=== PATIENT | male | born 1980 | race Caucasian/White ===

== ENCOUNTER 2016-08-02 14:43 | Emergency (ER) | payer OTHER, SELFPAY ==
[2016-08-02] MEDS ORDERED: Sodium Chloride 0.9% 1000 ML 1,000 ML IV STA (15:10)
[2016-08-02] MEDS ORDERED: Reglan 10 MG/2 ML IV ONE (15:10)
[2016-08-02] MEDS ORDERED: Zofran 4 MG/2 ML VIAL IV ONE (15:10)
[2016-08-02] MEDS ORDERED: Phenergan 25 MG INJ IM ONE (15:10)
[2016-08-02] MEDS ORDERED: Zofran 4 MG/2 ML VIAL ONE (15:14)
[2016-08-02] MEDS ORDERED: Phenergan 25 MG INJ ONE (15:14)
[2016-08-02] MEDS ORDERED: Sodium Chloride 0.9% 1000 ML 1,000 ML ONE (15:15)
[2016-08-02] MEDS ORDERED: Reglan 10 MG/2 ML ONE (15:15)
--- NOTE | 2016-08-02 15:15 | ERPHSYRPT ---
- History of Present Illness Time Seen by Provider: 08/02/16 15:12 Historian: patient Exam Limitations: no limitations Patient Subjective Stated Complaint: pt reports he ate rally's et has vomited ever since-denies diarrhea-states his bowels usually move everyday but hasn't since -states he does not feel constipated-pt states that he has been running for hours at a time to help the vomiting with no relief-states his legs hurt Triage Nursing Assessment: pt pale warm et dry-bile noted in vomit-pt very anxious upon axsxqfh-hwqgmitv-olrorielzs jittery movements-hyperventilating et yelling-jerking back et off the bed at attempted palp of abd Physician History: pt reports he ate rally[employer] et has vomited ever since-denies diarrhea- states his bowels usually move everyday but hasn't since -states he does not feel constipated-pt states that he has been running for hours at a time to help the vomiting with no relief-states his legs hurt, patient states that he has this type of problem off and on for long time and has been diagnosed with Post traumatic stress disorder Timing/Duration: day(s) (2 days) Quality: cramping Abdominal Pain Onset Location: generalized abdomen Pain Radiation: no radiation Severity of Pain-Max: moderate Severity of Pain-Current: moderate Modifying Factors: Improves With: nothing Associated Symptoms: nausea, vomiting Previous symptoms: same symptoms as today Allergies/Adverse Reactions: No Known Drug Allergies Allergy (Verified 08/02/16 14:54) Home Medications: No Home Meds [address] [facility] UD 08/02/16 [History] Hx Tetanus, Diphtheria Vaccination/Date Given: Yes Hx Influenza Vaccination/Date Given: No Hx Pneumococcal Vaccination/Date Given: No Immunizations Up to Date: Yes - Review of Systems Constitutional: No Fever, No Chills Eyes: No Symptoms Ears, Nose, & Throat: No Symptoms Respiratory: No Cough, No Dyspnea Cardiac: No Chest Pain, No Edema, No Syncope Abdominal/Gastrointestinal: Abdominal Pain, Nausea, Vomiting, No Diarrhea Genitourinary Symptoms: No Dysuria Musculoskeletal: No Back Pain, No Neck Pain Skin: No Rash Neurological: No Dizziness, No Focal Weakness, No Sensory Changes Psychological: No Symptoms Endocrine: No Symptoms All Other Systems: Reviewed and Negative - Past Medical History Pertinent Past Medical History: Yes Neurological History: No Pertinent History ENT History: No Pertinent History Cardiac History: No Pertinent History Respiratory History: No Pertinent History Endocrine Medical History: No Pertinent History Musculoskeletal History: No Pertinent History GI Medical History: GERD, Other History: No Pertinent History Psycho-Social History: Anxiety Male Reproductive Disorders: No Pertinent History - Past Surgical History Past Surgical History: Yes Neuro Surgical History: No Pertinent History Gastrointestinal: Cholecystectomy - Social History Smoking Status: Current every day smoker How long have you smoked: YRS Exposure to second hand smoke: Yes Drug Use: marijuana Patient Lives Alone: No Significant Family History: no pertinent family hx - Nursing Vital Signs Nursing Vital Signs: Initial Vital Signs Temperature 98.3 F Temperature Source Oral Pulse Rate 100 Respiratory Rate 22 Blood Pressure [Right Arm] 146/87 Pain Intensity 10 - Physical Exam General Appearance: no apparent distress, alert Eye Exam: PERRL/EOMI, eyes nml inspection Ears, Nose, Throat Exam: normal ENT inspection, pharynx normal, moist mucous membranes Neck Exam: normal inspection, non-tender, supple, full range of motion Respiratory Exam: normal breath sounds, lungs clear, No respiratory distress Cardiovascular Exam: regular rate/rhythm, normal heart sounds Gastrointestinal/Abdomen Exam: soft, tenderness (generalised), No mass Back Exam: normal inspection, normal range of motion, No CVA tenderness, No vertebral tenderness Extremity Exam: normal inspection, normal range of motion, pelvis stable Neurologic Exam: alert, oriented x 3, cooperative, normal mood/affect, nml cerebellar function, sensation nml, No motor deficits Skin Exam: normal color, warm, dry SpO2: 99 Oxygen Delivery: Room Air - Course Nursing assessment & vital signs reviewed: Yes Ordered Tests: Active Orders 24 hr Category Date Time Status Clean Catch Urine Specimen STAT Care 08/02/16 15:29 Active AMYLASE Stat Lab 08/02/16 15:16 Completed CBC W DIFF Stat Lab 08/02/16 15:16 Completed CMP Stat Lab 08/02/16 15:16 Completed LIPASE Stat Lab 08/02/16 15:16 Completed UA W/ MICROSCOPIC Stat Lab 08/02/16 15:40 Completed Urine Triage Profile Stat Lab 08/02/16 15:40 Completed Medication Summary Generic Name Dose Route Start Last Admin Trade Name Freq PRN Reason Stop Dose Admin Ceftriaxone Sodium/Dextrose 50 mls @ 100 mls/hr 08/02/16 16:24 Rocephin 1 Gm-D5w 50 Ml Bag IV 08/02/16 16:53 STAT ONE Discontinued Medications Generic Name Dose Route Start Last Admin Trade Name Isatu PRN Reason Stop Dose Admin Sodium Chloride 1,000 mls @ 999 mls/hr 08/02/16 15:10 08/02/16 15:19 Sodium Chloride 0.9% 1000 Ml IV 08/02/16 16:10 999 mls/hr .Q1H1M STA Administration Sodium Chloride Confirm 08/02/16 15:15 Sodium Chloride 0.9% 1000 Ml Administered 08/02/16 15:16 Dose 1,000 mls @ ud .ROUTE .STK-MED ONE Ceftriaxone Sodium/Dextrose Confirm 08/02/16 16:29 Rocephin 1 Gm-D5w 50 Ml Bag Administered 08/02/16 16:30 Dose 50 mls @ ud IV .STK-MED ONE Metoclopramide HCl 10 mg 08/02/16 15:10 08/02/16 15:19 Reglan 10 Mg/2 Ml IV 08/02/16 15:11 10 mg STAT ONE Administration Metoclopramide HCl Confirm 08/02/16 15:15 Reglan 10 Mg/2 Ml Administered 08/02/16 15:16 Dose 10 mg .ROUTE .STK-MED ONE Ondansetron HCl 4 mg 08/02/16 15:10 08/02/16 15:19 Zofran 4 Mg/2 Ml Vial IV 08/02/16 15:11 4 mg STAT ONE Administration Ondansetron HCl Confirm 08/02/16 15:14 Zofran 4 Mg/2 Ml Vial Administered 08/02/16 15:15 Dose 4 mg .ROUTE .STK-MED ONE Promethazine HCl 25 mg 08/02/16 15:10 08/02/16 15:19 Phenergan 25 Mg Inj IM 08/02/16 15:11 25 mg STAT ONE Administration Promethazine HCl Confirm 08/02/16 15:14 Phenergan 25 Mg Inj Administered 08/02/16 15:15 Dose 25 mg .ROUTE .STK-MED ONE Lab/Rad Data: Laboratory Result Diagrams 08/02/16 15:16 08/02/16 15:16 Laboratory Results 08/02/16 08/02/16 08/02/16 Range/Units 15:40 15:40 15:16 WBC (4.0-10.5) K/mm3 RBC (4.1-5.6) M/mm3 Hgb (12.5-18.0) gm/dl Hct (42-50) % MCV (78-100) fl MCH (26-32) pg MCHC (32-36) g/dl RDW (11.5-14.0) % Plt Count (150-450) K/mm3 MPV (6-9.5) fl Gran % (36.0-66.0) % Lymphocytes % (24.0-44.0) % Monocytes % (0.0-12.0) % Eosinophils % (0.00-5.0) % Basophils % (0.0-0.4) % Basophils # (0-0.4) Sodium 135 L (136-145) mEq/L Potassium 4.5 (3.5-5.1) mEq/L Chloride 97 L (98-107) mEq/L Carbon Dioxide 20.2 L (21-32) mEq/L Anion Gap 22.1 H (5-15) MEQ/L BUN 37 H (9-20) mg/dL Creatinine 1.79 H (0.55-1.30) mg/dl Estimated GFR 46 ML/MIN Glucose 119 H (70-110) MG/DL Calcium 9.8 (8.5-10.1) mg/dL Total Bilirubin 0.6 (0.2-1.0) mg/dL AST 135 H (15-37) U/L ALT 60 (12-78) U/L Alkaline Phosphatase 95 (46-116) U/L Serum Total Protein 7.9 (6.4-8.2) gm/dL Albumin 4.4 (3.4-5.0) g/dL Amylase 36 (25-115) U/L Lipase 96 (73-393) U/L Ur Collection Type CCMS Urine Color YELLOW (YELLOW) Urine Appearance CLEAR (CLEAR) Urine pH 5.5 (5-6) Ur Specific [place] 1.015 (1.005-1.025) Urine Protein 100 (Negative) Urine Glucose (UA) NEGATIVE (NEGATIVE) mg/dL Urine Ketones SMALL-15 (NEGATIVE) Urine Nitrite NEGATIVE (NEGATIVE) Urine Bilirubin NEGATIVE (NEGATIVE) Urine Urobilinogen 0.2 (0-1) mg/dL Urine WBC (Auto) NEGATIVE (NEGATIVE) Urine RBC (Auto) LARGE (0-5) Tru/ul Urine Microscopic RBC 2-5 (0-2) /HPF Urine Microscopic WBC 2-5 (0-5) /HPF Ur Epithelial Cells FEW (FEW) /HPF Urine Bacteria FEW (NEGATIVE) /HPF Granular Casts 0-2 (NEGATIVE) /LPF Urine Opiates Level NEG. (NEGATIVE) Ur Methadone NEG. (NEGATIVE) Urine Barbiturates NEG. (NEGATIVE) Ur Phencyclidine (PCP) NEG. (NEGATIVE) Urine Amphetamine NEG. (NEGATIVE) U Benzodiazepine Level NEG. (NEGATIVE) Urine Cocaine NEG. (NEGATIVE) Urine Marijuana (THC) POS. (NEGATIVE) Specimen Received 08/02 154408/02/16 Range/Units 15:16 WBC 15.3 H (4.0-10.5) K/mm3 RBC 4.94 (4.1-5.6) M/mm3 Hgb 14.7 (12.5-18.0) gm/dl Hct 42.6 (42-50) % MCV 86.2 (78-100) fl MCH 29.8 (26-32) pg MCHC 34.5 (32-36) g/dl RDW 13.9 (11.5-14.0) % Plt Count 303 (150-450) K/mm3 MPV 9.4 (6-9.5) fl Gran % 81.9 H (36.0-66.0) % Lymphocytes % 8.6 L (24.0-44.0) % Monocytes % 9.3 (0.0-12.0) % Eosinophils % 0.0 (0.00-5.0) % Basophils % 0.2 (0.0-0.4) % Basophils # 0.03 (0-0.4) Sodium (136-145) mEq/L Potassium (3.5-5.1) mEq/L Chloride (98-107) mEq/L Carbon Dioxide (21-32) mEq/L Anion Gap (5-15) MEQ/L BUN (9-20) mg/dL Creatinine (0.55-1.30) mg/dl Estimated GFR ML/MIN Glucose (70-110) MG/DL Calcium (8.5-10.1) mg/dL Total Bilirubin (0.2-1.0) mg/dL AST (15-37) U/L ALT (12-78) U/L Alkaline Phosphatase (46-116) U/L Serum Total Protein (6.4-8.2) gm/dL Albumin (3.4-5.0) g/dL Amylase (25-115) U/L Lipase (73-393) U/L Ur Collection Type Urine Color (YELLOW) Urine Appearance (CLEAR) Urine pH (5-6) Ur Specific [place] (1.005-1.025) Urine Protein (Negative) Urine Glucose (UA) (NEGATIVE) mg/dL Urine Ketones (NEGATIVE) Urine Nitrite (NEGATIVE) Urine Bilirubin (NEGATIVE) Urine Urobilinogen (0-1) mg/dL Urine WBC (Auto) (NEGATIVE) Urine RBC (Auto) (0-5) Tru/ul Urine Microscopic RBC (0-2) /HPF Urine Microscopic WBC (0-5) /HPF Ur Epithelial Cells (FEW) /HPF Urine Bacteria (NEGATIVE) /HPF Granular Casts (NEGATIVE) /LPF Urine Opiates Level (NEGATIVE) Ur Methadone (NEGATIVE) Urine Barbiturates (NEGATIVE) Ur Phencyclidine (PCP) (NEGATIVE) Urine Amphetamine (NEGATIVE) U Benzodiazepine Level (NEGATIVE) Urine Cocaine (NEGATIVE) Urine Marijuana (THC) (NEGATIVE) Specimen Received - Progress Progress: improved, pain not gone completely Progress Note: 08/02/16 16:32 Patient is given IV fluids, IV Phenergan, IV metoclopramide and IV Rocephin. Patient urine tox screen showed marijuana. Patient was specifically asking for Dilaudid IV, which patient is told that it is not recommended for this type of pain and nausea. So, he asks to discharge him if he is not going to get Dilaudid. Counseled pt/family regarding: lab results, diagnosis, need for follow-up - Departure Time of Disposition: 16:37 Departure Disposition: Home Clinical Impression: Enteritis due to Escherichia coli Vomiting Qualifiers: Vomiting type: unspecified Vomiting Intractability: unspecified Nausea presence : with nausea Qualified Code(s): R11.2 - Nausea with vomiting, unspecified Abdominal pain Qualifiers: Abdominal location: generalized Qualified Code(s): R10.84 - Generalized abdominal pain Condition: Stable Critical Care Time: Yes Critical Care Time(excluding separately billable procedures): 30-74 minutes Referrals: JESUS LARA [Primary Care Provider] - Instructions: Abdominal Pain-Adult, Nausea -- Adult, Vomiting -- Adult Additional Instructions: ABDOMINAL PAIN 1. There are several different causes for abdominal pain, some of which may not be able to be identified on initial examination. 2. The important thing to remember is that bodily functions can change in a short period of time. If you notice any of the following symptoms, return to the emergency department or consult your doctor immediately: A. Worsening pain or no improvement in the next 12 hours. B. Increasing, severe abdominal pain C. Blood in stool D. Black stools E. Persistent vomiting F. Fever or chills or other symptoms Please follow the instructions given to you. Please take your medication as prescribed if given. If symptoms recur or get worse, come back to the emergency room if you cannot reach your primary care physician, or call your primary care physician for an appointment. Again if your symptoms get worse, come back to the emergency room. Thanks for visiting emergency room, and let us take care of you. Prescriptions: Ciprofloxacin HCl 500 mg [Cipro 500 MG] 500 mg PO BIDAC #20 tablet Promethazine HCl 25 mg [Phenergan 25 mg] 25 mg PO QID #20 tablet
[2016-08-02 15:20] LABS: BASOPHIL % 0.2 % (0.0-0.4); Granulocytes % 81.9 % (36.0-66.0); Lymphocytes % 8.6 % (24.0-44.0); Mean Cell Volume 86.2 fl (78-100); Mean Corpuscular Hemoglobin 29.8 pg (26-32); Mean Platelet Volume 9.4 fl (6-9.5); Monocytes % 9.3 % (0.0-12.0); Platelet Count 303 K/mm3 (150-450); Red Blood Count 4.94 M/mm3 (4.1-5.6); Red Cell Distribution Width 13.9 % (11.5-14.0); White Blood Count 15.3 K/mm3 (4.0-10.5)
[2016-08-02 15:39] LABS: ALBUMIN 4.4 g/dL (3.4-5.0); ANION GAP 22.1 MEQ/L (5-15); BILIRUBIN,TOTAL 0.6 mg/dL (0.2-1.0); Carbon Dioxide 20.2 mEq/L (21-32); Potassium 4.5 mEq/L (3.5-5.1); Total Protein 7.9 gm/dL (6.4-8.2)
[2016-08-02 15:56] LABS: Bacteria FEW /HPF (NEGATIVE); COMPLETE URINE MICROSCOPIC? YES; Collection Type CCMS; Epithelial Cells FEW /HPF (FEW); GRANULAR CASTS 0-2 /LPF (NEGATIVE); Ph 5.5 (5-6)
[2016-08-02] MEDS ORDERED: ROCEPHIN 1 Gm-D5w 50 ml Bag** 50 ML IV ONE ×2 (16:24→16:29)
[2016-08-02 16:37] VITALS: O2SAT 99
[2016-08-02 16:38] VITALS: BP 155/74; PULSE 108
== END 2016-08-02 17:09 | disposition home or self-care (01) ==
LOC: ED 14:43
DX: A04.4 Other intestinal Escherichia coli infections (principal); R11.2 Nausea with vomiting, unspecified; R10.84 Generalized abdominal pain
CPT/HCPCS: 36415; 80053; 80307; 81000; 82150; 83690; 85025; 96360; 96361; 96372; 96374; 96375; 99285; J0696; J2405; J2550

== ENCOUNTER 2017-09-06 17:01 | Emergency (ER) | payer OTHER ==
[2017-09-06] MEDS ORDERED: Sodium Chloride 0.9% 1000 ML 1,000 ML IV STA (17:29)
--- NOTE | 2017-09-06 17:35 | ERPHSYRPT ---
- History of Present Illness Time Seen by Provider: 09/06/17 17:21 Source: patient Exam Limitations: no limitations Patient Subjective Stated Complaint: Pt states "I have been losing weight for three weeks and I do not know why. I have had stomach issues my whole life but this morning my stool was black." Triage Nursing Assessment: Pt alert and oriented X 3, skin pwd. PT ambulates with an upright steady gait, able to speak in clear full sentences. Pt in no apparent respiratory distress. Physician History: 37-year-old white male with history of osteoarthritis, GERD, anxiety, PTSD. Patient arrives with complaint of 3 weeks of losing weight.He states he's had black stools for 2 days. He does state that he has been taking Pepto-Bismol recently.patient states he has been feeling weak. Past medical history includes a arthritis, GERD, anxiety, PTSD. Past surgical history includes cholecystectomy. Social history includes tobacco use. Patient admits to marijuana use denies alcohol use. Timing/Duration: week(s) (3 weeks losing weight black stools for 2 days) Severity: moderate Modifying Factors: Improves With: nothing Associated Symptoms: weakness, other (black stools for 2 days), No nausea, No vomiting, No abdominal pain, No shortness of breath, No heartburn, No diaphoresis, No cough, No chills, No chest pain, No fever, No headaches, No loss of appetite, No malaise, No rash, No syncope, No seizure Allergies/Adverse Reactions: No Known Drug Allergies Allergy (Verified 08/02/16 14:54) Home Medications: Tizanidine HCl 4 mg PO DAILY 09/06/17 [History] Tramadol HCl 50 mg [Ultram 50 mg] 50 mg PO DAILY 09/06/17 [History] Hx Tetanus, Diphtheria Vaccination/Date Given: Yes Hx Influenza Vaccination/Date Given: No Hx Pneumococcal Vaccination/Date Given: No Immunizations Up to Date: Yes - Review of Systems Constitutional: Weakness, Weight Loss, No Fever, No Chills Eyes: No Symptoms Ears, Nose, & Throat: No Symptoms Respiratory: No Cough, No Dyspnea Cardiac: No Symptoms, No Chest Pain, No Edema, No Syncope Abdominal/Gastrointestinal: Melena, No Abdominal Pain, No Nausea, No Vomiting, No Diarrhea, No Constipation, No Hematemesis, No Hematochezia, No Dysphagia, No Appetite Changes Genitourinary Symptoms: No Dysuria Musculoskeletal: No Back Pain, No Neck Pain Skin: No Rash Neurological: No Dizziness, No Focal Weakness, No Sensory Changes Psychological: No Symptoms Endocrine: No Symptoms All Other Systems: Reviewed and Negative - Past Medical History Pertinent Past Medical History: Yes Neurological History: No Pertinent History ENT History: No Pertinent History Cardiac History: Other Respiratory History: No Pertinent History Endocrine Medical History: No Pertinent History Musculoskeletal History: Osteoarthritis GI Medical History: GERD, Other History: No Pertinent History Psycho-Social History: Anxiety Male Reproductive Disorders: No Pertinent History Other Medical History: SOB at times, - Past Surgical History Past Surgical History: Yes Neuro Surgical History: No Pertinent History Gastrointestinal: Cholecystectomy - Social History Smoking Status: Current every day smoker How long have you smoked: 23 Exposure to second hand smoke: Yes Drug Use: marijuana Patient Lives Alone: No Significant Family History: no pertinent family hx - Nursing Vital Signs Nursing Vital Signs: Initial Vital Signs Temperature 99.1 F 09/06/17 17:14 Pulse Rate 84 09/06/17 17:14 Respiratory Rate 16 09/06/17 17:14 Blood Pressure 148/89 09/06/17 17:14 O2 Sat by Pulse Oximetry 99 09/06/17 17:14 Pain Scale Pain Intensity 0 - Physical Exam General Appearance: no apparent distress, alert Eye Exam: PERRL/EOMI, eyes nml inspection Ears, Nose, Throat Exam: normal ENT inspection, TMs normal, pharynx normal, moist mucous membranes Neck Exam: normal inspection, non-tender, supple, full range of motion Respiratory Exam: normal breath sounds, lungs clear, No respiratory distress Cardiovascular Exam: regular rate/rhythm, normal heart sounds, normal peripheral pulses Gastrointestinal/Abdomen Exam: soft, normal bowel sounds, No tenderness, No mass Rectal Exam: normal rectal tone, No blood Back Exam: normal inspection, normal range of motion, No CVA tenderness, No vertebral tenderness Extremity Exam: normal inspection, normal range of motion, pelvis stable Neurologic Exam: alert, oriented x 3, cooperative, normal mood/affect, nml cerebellar function, nml station & gait, sensation nml, No motor deficits Skin Exam: normal color, warm, dry, No rash SpO2 Interpretation: normal (99%) SpO2: 99 Oxygen Delivery: Room Air Ordered Tests: Active Orders 24 hr Category Date Time Status IV Insertion STAT Care 09/06/17 17:29 Active CBC W DIFF Stat Lab 09/06/17 17:51 Completed CMP Stat Lab 09/06/17 17:51 Completed Occult Blood,Stool Other Stat Lab 09/06/17 17:54 Completed T4 (Thyroxine) Stat Lab 09/06/17 17:51 Received TSH [TSH, 3RD Generation] Stat Lab 09/06/17 17:51 Received Medication Summary Discontinued Medications Generic Name Dose Route Start Last Admin Trade Name Isatu PRN Reason Stop Dose Admin Sodium Chloride 1,000 mls @ 999 mls/hr 09/06/17 17:29 09/06/17 17:51 Sodium Chloride 0.9% 1000 Ml IV 09/06/17 18:29 999 mls/hr .Q1H1M STA Administration Sodium Chloride Confirm 09/06/17 17:43 Sodium Chloride 0.9% 1000 Ml Administered 09/06/17 17:44 Dose 1,000 mls @ ud .ROUTE .STK-MED ONE Lab/Rad Data: Laboratory Result Diagrams 09/06/17 17:51 09/06/17 17:51 Laboratory Results 09/06/17 09/06/17 09/06/17 Range/Units 17:54 17:51 17:51 WBC 8.0 (4.0-10.5) K/mm3 RBC 4.63 (4.1-5.6) M/mm3 Hgb 14.1 (12.5-18.0) gm/dl Hct 41.4 L (42-50) % MCV 89.4 (78-100) fl MCH 30.5 (26-32) pg MCHC 34.1 (32-36) g/dl RDW 13.8 (11.5-14.0) % Plt Count 280 (150-450) K/mm3 MPV 9.2 (6-9.5) fl Gran % 60.2 (36.0-66.0) % Eos # (Auto) 0.57 H (0-0.5) Absolute Lymphs (auto) 1.42 (1.0-4.6) Absolute Monos (auto) 1.16 (0.0-1.3) Lymphocytes % 17.7 L (24.0-44.0) % Monocytes % 14.4 H (0.0-12.0) % Eosinophils % 7.1 H (0.00-5.0) % Basophils % 0.6 (0.0-0.4) % Absolute Granulocytes 4.83 (1.4-6.9) Basophils # 0.05 (0-0.4) Sodium 139 (137-145) mmol/L Potassium 4.2 (3.5-5.1) mmol/L Chloride 104 (98-107) mmol/L Carbon Dioxide 26 (22-30) mmol/L Anion Gap 13.3 (5-15) MEQ/L BUN 25 H (9-20) mg/dL Creatinine 1.00 (0.66-1.25) mg/dL Estimated GFR > 60.0 ML/MIN Glucose 107 H (74-106) mg/dL Calcium 9.7 (8.4-10.2) mg/dL Total Bilirubin 0.50 (0.2-1.3) mg/dL AST 97 H (17-59) U/L ALT 38 (0-50) U/L Alkaline Phosphatase 84 (38-126) U/L Serum Total Protein 7.1 (6.3-8.2) g/dL Albumin 4.4 (3.5-5.0) g/dL Stool Occult Blood NEGATIVE (Negative) - Progress Progress: improved Progress Note: 09/06/17 18:26 37-year-old white male arrives with complaint of weight loss close to 20 pounds in 3 weeks. He also states that he had black stools this morning and yesterday. Patient has been taking Pepto-Bismol. Patient denies vomiting no diarrhea. On physical examination patient nontender abdomen positive bowel sounds. Patient's occult blood is negative. TSH T4 is pending. CBC shows a normal hemoglobin and hematocrit. Chemistry essentially normal with the exception of a BUN of 25. Patient has been given 1 L of normal saline. Will discharge patient. Patient to follow-up with his family doctor. 09/06/17 18:32 Patient's orthostatic vital signs are within normal limits. - Departure Time of Disposition: 18:29 Departure Disposition: Home Clinical Impression: Weight loss Condition: Fair Critical Care Time: No Referrals: JESUS LARA [Primary Care Provider] - Additional Instructions: Return home. Plenty of fluids. Follow-up with your family doctor call tomorrow morning and schedule an appointment. Return for acute distress or for severe symptoms
[2017-09-06] MEDS ORDERED: Sodium Chloride 0.9% 1000 ML 1,000 ML ONE (17:43)
[2017-09-06 17:55] LABS: BASOPHIL % 0.6 % (0.0-0.4); Basophil (Absolute #) 0.05 (0-0.4); Eosinophil % 7.1 % (0.00-5.0); Eosinophil (Absolute #) 0.57 (0-0.5); Granulocyte Absolute (ANC) 4.83 (1.4-6.9); Granulocytes % 60.2 % (36.0-66.0); Hematocrit 41.4 % (42-50); Hemoglobin 14.1 gm/dl (12.5-18.0); Lymphocyte (Absolute #) 1.42 (1.0-4.6); Lymphocytes % 17.7 % (24.0-44.0); Mean Cell Volume 89.4 fl (78-100); Mean Corpuscular Hemoglobin 30.5 pg (26-32); Mean Corpuscular Hgb Concent. 34.1 g/dl (32-36); Mean Platelet Volume 9.2 fl (6-9.5); Monocyte (Absolute #) 1.16 (0.0-1.3); Monocytes % 14.4 % (0.0-12.0); Platelet Count 280 K/mm3 (150-450); Red Blood Count 4.63 M/mm3 (4.1-5.6); Red Cell Distribution Width 13.8 % (11.5-14.0)
[2017-09-06 18:22] LABS: ALBUMIN 4.4 g/dL (3.5-5.0); ALKALINE PHOSPHATASE 84 U/L (38-126); ANION GAP 13.3 MEQ/L (5-15); BLOOD UREA NITROGEN 25 mg/dL (9-20); CHLORIDE 104 mmol/L (98-107); Calcium 9.7 mg/dL (8.4-10.2); Carbon Dioxide 26 mmol/L (22-30); Glucose 107 mg/dL (74-106); Potassium 4.2 mmol/L (3.5-5.1); SGOT/AST 97 U/L (17-59); SGPT/ALT 38 U/L (0-50); SODIUM 139 mmol/L (137-145); Total Protein 7.1 g/dL (6.3-8.2)
[2017-09-06 19:02] VITALS: BP 114/63; PULSE 96; O2SAT 100
[2017-09-06 19:04] LABS: TSH, 3RD Generation 0.561 mIU/L (0.47-4.68)
== END 2017-09-06 19:02 | disposition home or self-care (01) ==
LOC: ED 17:01
DX: R63.4 Abnormal weight loss (principal); Z79.899 Other long term (current) drug therapy
CPT/HCPCS: 36000; 36415; 80053; 82272; 84436; 84443; 85025; 96360; 99284

== ENCOUNTER 2021-08-05 20:39 | Emergency (ER) | payer BC, OTHER ==
[2021-08-05] MEDS ORDERED: ANTIVERT 25 MG PO ONE (20:59)
[2021-08-05 21:06] VITALS: O2SAT 97
[2021-08-05] MEDS ORDERED: ANTIVERT 25 MG ONE (21:15)
[2021-08-05 21:28] LABS: Epithelial Cells RARE /HPF (FEW); Mucus SLIGHT /HPF (NEGATIVE)
[2021-08-05 21:28] LABS: Absolute Neutrophil Ct (ANC) 4.47 (1.4-6.9); Basophil (Absolute #) 0.07 (0-0.4); Eosinophil % 4.7 % (0.00-5.0); Eosinophil (Absolute #) 0.38 (0-0.5); Hematocrit 42.4 % (42-50); Hemoglobin 13.9 gm/dl (12.5-18.0); Lymphocyte (Absolute #) 2.45 (1.0-4.6); Lymphocytes % 30.2 % (24.0-44.0); Mean Cell Volume 91.2 fl (78-100); Mean Corpuscular Hemoglobin 29.9 pg (26-32); Mean Corpuscular Hgb Concent. 32.8 g/dl (32-36); Mean Platelet Volume 9.3 fl (7.5-11.0); Monocyte (Absolute #) 0.74 (0.0-1.3); Monocytes % 9.1 % (0.0-12.0); Neutrophil % 55.1 % (36.0-66.0); Platelet Count 315 K/mm3 (150-450); Red Blood Count 4.65 M/mm3 (4.1-5.6); Red Cell Distribution Width 14.4 % (11.5-14.0); White Blood Count 8.1 K/mm3 (4.0-10.5)
[2021-08-05 21:29] LABS: Appearance CLEAR (CLEAR); Bilirubin NEGATIVE (NEGATIVE); Glucose NEGATIVE (NEGATIVE); Ketones NEGATIVE (NEGATIVE); Nitrite NEGATIVE (NEGATIVE); Protein,Urine Dip NEGATIVE (Negative); RBC NEGATIVE Ery/ul (0-5); Specific Gravity >=1.030 (1.005-1.025); Urine Cultured Indicated? NO; Urobilinogen 0.2 mg/dL (0-1)
--- NOTE | 2021-08-05 21:34 | ERPHSYRPT ---
- History of Present Illness Time Seen by Provider: 08/05/21 20:50 Source: patient Exam Limitations: no limitations Patient Subjective Stated Complaint: pt states he has had intermittent dizziness since thursday. states yesterday he felt better but tonight became dizzy after laying down while on his break at work. felt better after sitting for several minutes and went back to work and had dizziness again after going back to work. Triage Nursing Assessment: pt alert and oriented, answers questions approp. pt ambulatory with steady gait noted. respirations nonlabored. skin warm and dry, pupils equal and reactive. bilat upper and lower ext strength equal and wnl. heart rate 75 on monitor, sinus rhythm Physician History: Patient has been having episodes of dizziness and vertigo since Thursday. He was extremely bad on Thursday with any movement he would get very vertiginous and somewhat nauseated Thursday he felt better at work today at lunchtime he went out had his lunch and then laid down on a bench when he got up the vertigo returned he has had no upper respiratory infections he has noted loud tinnitus and has had some chills. Timing/Duration: day(s) (3), intermittent Severity: moderate Modifying Factors: Improves With: movement Associated Symptoms: nausea, chills Allergies/Adverse Reactions: No Known Drug Allergies Allergy (Verified 08/05/21 21:06) Home Medications: Alprazolam [Xanax] 0.5 mg PO TID 08/05/21 [History] Doxepin HCl 50 mg PO HS 08/05/21 [History] Hx Tetanus, Diphtheria Vaccination/Date Given: Yes Hx Influenza Vaccination/Date Given: No Hx Pneumococcal Vaccination/Date Given: No Immunizations Up to Date: Yes Travel Risk - International Travel Have you traveled outside of the country in past 3 weeks: No - Coronavirus Screening Are you exhibiting any of the following symptoms?: No Close contact with a COVID-19 positive Pt in past 14-21 Days: No - Vaccine Status Have you recieved a Covid-19 vaccination: No - Review of Systems Constitutional: Chills, No Fever Eyes: No Symptoms Ears, Nose, & Throat: No Symptoms, Tinnitus Respiratory: No Cough, No Dyspnea Cardiac: No Chest Pain, No Edema, No Syncope Abdominal/Gastrointestinal: No Abdominal Pain, No Nausea, No Vomiting, No Diarrhea Genitourinary Symptoms: No Dysuria Musculoskeletal: No Back Pain, No Neck Pain Skin: No Rash Neurological: No Dizziness, No Focal Weakness, No Sensory Changes Psychological: No Symptoms Endocrine: No Symptoms All Other Systems: Reviewed and Negative - Past Medical History Pertinent Past Medical History: Yes Neurological History: Other ENT History: No Pertinent History Cardiac History: No Pertinent History Respiratory History: No Pertinent History Endocrine Medical History: No Pertinent History Musculoskeletal History: Degenerative Disk Disease GI Medical History: GERD, Other History: No Pertinent History Psycho-Social History: Anxiety Male Reproductive Disorders: No Pertinent History Other Medical History: SX HX - CHOLECYSTECTOMY - Past Surgical History Past Surgical History: Yes Neuro Surgical History: No Pertinent History Gastrointestinal: Cholecystectomy - Social History Smoking Status: Current every day smoker How long have you smoked: 27 yrs Exposure to second hand smoke: Yes Drug Use: marijuana Patient Lives Alone: No Significant Family History: no pertinent family hx - Nursing Vital Signs Nursing Vital Signs: Initial Vital Signs Pulse Rate 77 08/05/21 20:44 Respiratory Rate 16 08/05/21 20:44 Blood Pressure 140/86 08/05/21 20:44 O2 Sat by Pulse Oximetry 97 08/05/21 20:44 Pain Scale Pain Intensity 0 - Physical Exam General Appearance: mild distress, alert Eye Exam: PERRL/EOMI, eyes nml inspection Ears, Nose, Throat Exam: normal ENT inspection, TMs normal, pharynx normal, moist mucous membranes Neck Exam: normal inspection, non-tender, supple, full range of motion Respiratory Exam: normal breath sounds, lungs clear, No respiratory distress Cardiovascular Exam: regular rate/rhythm, normal heart sounds, normal peripheral pulses Gastrointestinal/Abdomen Exam: soft, normal bowel sounds, No tenderness, No mass Back Exam: normal inspection, normal range of motion, No CVA tenderness, No vertebral tenderness Extremity Exam: normal inspection, normal range of motion, pelvis stable Neurologic Exam: alert, oriented x 3, cooperative, normal mood/affect, nml cerebellar function, nml station & gait, sensation nml, No motor deficits, No abnormal cerebellar tests Skin Exam: normal color, warm, dry, No rash Lymphatic Exam: No adenopathy SpO2: 97 - Course Nursing assessment & vital signs reviewed: Yes EKG Interpreted by Me: RATE (74), NORMAL AXIS, NORMAL INTERVALS, NORMAL QRS, NORMAL ST-T - CT Exams Head CT Interpretation: Tele-radiologist Report Ordered Tests: Active Orders 24 hr Category Date Time Status EKG-ER Only STAT Care 08/05/21 21:01 Active IV Insertion STAT Care 08/05/21 21:06 Active Orthostatic Vital Signs STAT Care 08/05/21 21:08 Active HEAD WITHOUT CONTRAST [CT] Stat Exams 08/05/21 21:00 Taken AMYLASE Stat Lab 08/05/21 21:20 Completed CBC W DIFF Stat Lab 08/05/21 21:20 Completed CMP Stat Lab 08/05/21 21:20 Completed LIPASE Stat Lab 08/05/21 21:20 Completed Lactic Acid Stat Lab 08/05/21 21:29 Completed TROPONIN Q3H Lab 08/05/21 21:20 Completed TROPONIN Q3H Lab 08/06/21 00:15 Ordered TROPONIN Q3H Lab 08/06/21 03:15 Ordered TROPONIN Q3H Lab 08/06/21 06:15 Ordered TROPONIN Q3H Lab 08/06/21 09:15 Ordered UA W/RFX CULTURE Stat Lab 08/05/21 21:06 Completed Medication Summary Discontinued Medications Generic Name Dose Route Start Last Admin Trade Name Isatu PRN Reason Stop Dose Admin Meclizine HCl 25 mg 08/05/21 20:59 08/05/21 21:16 Meclizine Hcl 25 Mg Tablet PO 08/05/21 21:00 25 mg STAT ONE Administration Meclizine HCl Confirm 08/05/21 21:15 Meclizine Hcl 25 Mg Tablet Administered 08/05/21 21:16 Dose 25 mg .ROUTE .ST[place]-MED ONE Lab/Rad Data: Laboratory Result Diagrams 08/05/21 21:20 08/05/21 21:20 Laboratory Results 08/05/21 08/05/21 08/05/21 Range/Units 21:29 21:20 21:20 WBC (4.0-10.5) K/mm3 RBC (4.1-5.6) M/mm3 Hgb (12.5-18.0) gm/dl Hct (42-50) % MCV (78-100) fl MCH (26-32) pg MCHC (32-36) g/dl RDW (11.5-14.0) % Plt Count (150-450) K/mm3 MPV (7.5-11.0) fl Gran % (36.0-66.0) % Eos # (Auto) (0-0.5) Absolute Lymphs (auto) (1.0-4.6) Absolute Monos (auto) (0.0-1.3) Lymphocytes % (24.0-44.0) % Monocytes % (0.0-12.0) % Eosinophils % (0.00-5.0) % Basophils % (0.0-0.4) % Absolute Granulocytes (1.4-6.9) Basophils # (0-0.4) Sodium 138 (137-145) mmol/L Potassium 4.6 (3.5-5.1) mmol/L Chloride 107 (98-107) mmol/L Carbon Dioxide 22 (22-30) mmol/L Anion Gap 13.0 (5-15) MEQ/L BUN 20 (9-20) mg/dL Creatinine 0.96 (0.66-1.25) mg/dL Estimated GFR > 60.0 ML/MIN Glucose 98 (74-106) mg/dL Lactic Acid 1.2 (0.4-2.0) Calcium 9.4 (8.4-10.2) mg/dL Total Bilirubin 0.40 (0.2-1.3) mg/dL AST 26 (17-59) U/L ALT 17 (0-50) U/L Alkaline Phosphatase 77 (38-126) U/L Troponin I < 0.012 (0.000-0.034) ng/mL Serum Total Protein 6.9 (6.3-8.2) g/dL Albumin 4.2 (3.5-5.0) g/dL Amylase 99 (30-110) U/L Lipase 383 H (23-300) U/L Urinalys Dipstick Clnc Urine Color (YELLOW) Urine Appearance (CLEAR) Urine pH (5-6) Ur Specific [place] (1.005-1.025) POC Urine Protein Conf (Negative) Urine Ketones (NEGATIVE) Urine Nitrite (NEGATIVE) Urine Bilirubin (NEGATIVE) Urine Urobilinogen (0-1) mg/dL Urine Leukocytes (NEGATIVE) Urine WBC (Auto) (0-5) /HPF U Epithel Cells (Auto) (FEW) /HPF Urine Bacteria (Auto) (NEGATIVE) /HPF Urine RBC (0-5) Tru/ul Urine Mucus (Auto) (NEGATIVE) /HPF Ur Culture Indicated? Urine Glucose (NEGATIVE) mg/dL 08/05/21 08/05/21 Range/Units 21:20 21:06 WBC 8.1 (4.0-10.5) K/mm3 RBC 4.65 (4.1-5.6) M/mm3 Hgb 13.9 (12.5-18.0) gm/dl Hct 42.4 (42-50) % MCV 91.2 (78-100) fl MCH 29.9 (26-32) pg MCHC 32.8 (32-36) g/dl RDW 14.4 H (11.5-14.0) % Plt Count 315 (150-450) K/mm3 MPV 9.3 (7.5-11.0) fl Gran % 55.1 (36.0-66.0) % Eos # (Auto) 0.38 (0-0.5) Absolute Lymphs (auto) 2.45 (1.0-4.6) Absolute Monos (auto) 0.74 (0.0-1.3) Lymphocytes % 30.2 (24.0-44.0) % Monocytes % 9.1 (0.0-12.0) % Eosinophils % 4.7 (0.00-5.0) % Basophils % 0.9 (0.0-0.4) % Absolute Granulocytes 4.47 (1.4-6.9) Basophils # 0.07 (0-0.4) Sodium (137-145) mmol/L Potassium (3.5-5.1) mmol/L Chloride (98-107) mmol/L Carbon Dioxide (22-30) mmol/L Anion Gap (5-15) MEQ/L BUN (9-20) mg/dL Creatinine (0.66-1.25) mg/dL Estimated GFR ML/MIN Glucose (74-106) mg/dL Lactic Acid (0.4-2.0) Calcium (8.4-10.2) mg/dL Total Bilirubin (0.2-1.3) mg/dL AST (17-59) U/L ALT (0-50) U/L Alkaline Phosphatase (38-126) U/L Troponin I (0.000-0.034) ng/mL Serum Total Protein (6.3-8.2) g/dL Albumin (3.5-5.0) g/dL Amylase (30-110) U/L Lipase (23-300) U/L Urinalys Dipstick Clnc MAIN LAB Urine Color YELLOW (YELLOW) Urine Appearance CLEAR (CLEAR) Urine pH 6.0 (5-6) Ur Specific [place] >=1.030 (1.005-1.025) POC Urine Protein Conf NEGATIVE (Negative) Urine Ketones NEGATIVE (NEGATIVE) Urine Nitrite NEGATIVE (NEGATIVE) Urine Bilirubin NEGATIVE (NEGATIVE) Urine Urobilinogen 0.2 (0-1) mg/dL Urine Leukocytes NEGATIVE (NEGATIVE) Urine WBC (Auto) NONE (0-5) /HPF U Epithel Cells (Auto) RARE (FEW) /HPF Urine Bacteria (Auto) NONE (NEGATIVE) /HPF Urine RBC NEGATIVE (0-5) Tru/ul Urine Mucus (Auto) SLIGHT (NEGATIVE) /HPF Ur Culture Indicated? NO Urine Glucose NEGATIVE (NEGATIVE) mg/dL - Progress Progress: improved - Departure Departure Disposition: Home Clinical Impression: Labyrinthitis Condition: Stable Critical Care Time: No Referrals: JESUS LARA NP [Primary Care Provider] - Follow up/PCP as directed Instructions: Vertigo (a Type of Dizziness) (DC) Prescriptions: Meclizine HCl 25 mg [Antivert 25 mg] 25 mg PO TID 5 Days #15 tablet
[2021-08-05 21:38] LABS: ALBUMIN 4.2 g/dL (3.5-5.0); ALKALINE PHOSPHATASE 77 U/L (38-126); AMYLASE 99 U/L (30-110); BLOOD UREA NITROGEN 20 mg/dL (9-20); CHLORIDE 107 mmol/L (98-107); Calcium 9.4 mg/dL (8.4-10.2); Carbon Dioxide 22 mmol/L (22-30); Creatinine 1 0.96 mg/dL (0.66-1.25); EST GLOMERULAR FILTRATION RATE > 60.0 ML/MIN; Glucose 98 mg/dL (74-106); LIPASE 383 U/L (23-300); Potassium 4.6 mmol/L (3.5-5.1); SGOT/AST 26 U/L (17-59); SGPT/ALT 17 U/L (0-50); SODIUM 138 mmol/L (137-145); Total Protein 6.9 g/dL (6.3-8.2)
[2021-08-05 21:54] LABS: Dipstick done @ ? MAIN LAB
[2021-08-05 22:07] VITALS: BP 112/86; PULSE 64
--- NOTE | 2021-08-06 08:45 | XRAY ---
Indication: Left temporal pain and dizziness. Multiple contiguous axial images obtained through the head without contrast. Comparison: None Normal appearing brain parenchyma, ventricles, and bony calvarium. Visualized paranasal sinuses and mastoid air cells are clear. Impression: Normal CT head without contrast exam.
== END 2021-08-05 22:12 | disposition home or self-care (01) ==
LOC: ED 20:39
DX: H83.09 Labyrinthitis, unspecified ear (principal); R42 Dizziness and giddiness; H93.19 Tinnitus, unspecified ear; Z72.0 Tobacco use
CPT/HCPCS: 36000; 36415; 70450; 80053; 81015; 82150; 83605; 83690; 84484; 85025; 93005; 99284; A9270-GY

== ENCOUNTER 2021-09-03 23:30 | Emergency (ER) | payer OTHER ==
--- NOTE | 2021-09-03 23:31 | ERPHSYRPT ---
- History of Present Illness Time Seen by Provider: 09/03/21 23:31 Historian: patient Exam Limitations: no limitations Physician History: This is a 41-year-old white male who has had a history of degenerative joint disease of his back in the past. In addition, he has had multiple patches of ureteral stones bilaterally. Most of the passage of ureteral stones have been on the left side. Patient began having pain in the left flank approximately 3 days ago it seemed to worsen then let up. He had associated nausea and sweating with the episodes when they worsened. Today, approximately 4 PM there was sudden onset of worsening pain but then it lightened up and he went into work. Approximately 9 PM he had another episode where the pain worsened and he had associated sweating. He then went home hoping the pain would resolve itself and it did not so he came to the emergency department for evaluation. Timing/Duration: day(s) (3), intermittent, worse Quality: aching Abdominal Pain Onset Location: flank (Left flank) Pain Radiation: groin (Left) Severity of Pain-Max: moderate Severity of Pain-Current: moderate Modifying Factors: Improves With: nothing Associated Symptoms: diaphoresis, nausea Previous symptoms: same symptoms as today, no recent treatment Allergies/Adverse Reactions: No Known Drug Allergies Allergy (Verified 08/05/21 21:06) Home Medications: Alprazolam [Xanax] 0.5 mg PO TID 08/05/21 [History] Doxepin HCl 50 mg PO HS 08/05/21 [History] Hx Tetanus, Diphtheria Vaccination/Date Given: Yes Hx Influenza Vaccination/Date Given: No Hx Pneumococcal Vaccination/Date Given: No Travel Risk - International Travel Have you traveled outside of the country in past 3 weeks: No - Coronavirus Screening Are you exhibiting any of the following symptoms?: No - Vaccine Status Have you recieved a Covid-19 vaccination: No - Review of Systems Constitutional: No Symptoms Eyes: No Symptoms Ears, Nose, & Throat: No Symptoms Respiratory: No Symptoms Cardiac: No Symptoms Abdominal/Gastrointestinal: No Symptoms Genitourinary Symptoms: Hesitancy, Flank Pain (Left) Musculoskeletal: No Symptoms Skin: No Symptoms Neurological: No Symptoms Psychological: No Symptoms Endocrine: No Symptoms Hematologic/Lymphatic: No Symptoms Immunological/Allergic: No Symptoms All Other Systems: Reviewed and Negative - Past Medical History Pertinent Past Medical History: Yes Neurological History: Other ENT History: No Pertinent History Cardiac History: No Pertinent History Respiratory History: No Pertinent History Endocrine Medical History: No Pertinent History Musculoskeletal History: Degenerative Disk Disease GI Medical History: GERD, Other History: No Pertinent History Psycho-Social History: Anxiety Male Reproductive Disorders: No Pertinent History Other Medical History: SX HX - CHOLECYSTECTOMY - Past Surgical History Past Surgical History: Yes Neuro Surgical History: No Pertinent History Gastrointestinal: Cholecystectomy - Social History Smoking Status: Current every day smoker How long have you smoked: 27 yrs Exposure to second hand smoke: Yes Drug Use: marijuana Patient Lives Alone: No Significant Family History: no pertinent family hx - Nursing Vital Signs Nursing Vital Signs: Initial Vital Signs Temperature 98.8 F 09/04/21 00:20 Pulse Rate 74 09/04/21 00:20 Respiratory Rate 18 09/04/21 00:20 Blood Pressure 118/72 09/04/21 00:20 O2 Sat by Pulse Oximetry 98 09/04/21 00:20 Pain Scale Pain Intensity 0 - Physical Exam General Appearance: no apparent distress, alert, anxiety Eye Exam: PERRL/EOMI, eyes nml inspection Ears, Nose, Throat Exam: normal ENT inspection, moist mucous membranes Neck Exam: normal inspection, non-tender, supple, full range of motion Respiratory Exam: normal breath sounds, lungs clear, airway intact, No chest tenderness, No respiratory distress Cardiovascular Exam: regular rate/rhythm, normal heart sounds, normal peripheral pulses Gastrointestinal/Abdomen Exam: soft, normal bowel sounds, No tenderness, No guarding Rectal Exam: not done Back Exam: normal inspection, normal range of motion, CVA tenderness (Left), No vertebral tenderness Extremity Exam: normal inspection, normal range of motion, pelvis stable Neurologic Exam: alert, oriented x 3, cooperative, outdoor guide II-XII nml as tested, normal mood/affect, nml cerebellar function, nml station & gait, sensation nml Skin Exam: normal color, warm, dry Lymphatic Exam: No adenopathy SpO2 Interpretation: normal O2 Delivery: Room Air - Course Nursing assessment & vital signs reviewed: Yes Ordered Tests: Active Orders 24 hr Category Date Time Status IV Insertion STAT Care 09/04/21 00:36 Active ABDOMEN AND PELVIS W/0 CONTRAS [CT] Stat Exams 09/04/21 00:36 Taken AMYLASE Stat Lab 09/04/21 00:36 Completed CBC W DIFF Stat Lab 09/04/21 00:36 Completed CMP Stat Lab 09/04/21 00:36 Completed LIPASE Stat Lab 09/04/21 00:36 Completed UA W/RFX CULTURE Stat Lab 09/04/21 01:19 Completed Medication Summary Discontinued Medications Generic Name Dose Route Start Last Admin Trade Name Isatu PRN Reason Stop Dose Admin Sodium Chloride 1,000 mls @ 999 mls/hr 09/04/21 00:36 09/04/21 00:53 Sodium Chloride 0.9% 1000 Ml IV 09/04/21 01:36 999 mls/hr .Q1H1M STA Administration Sodium Chloride Confirm 09/04/21 00:44 Sodium Chloride 0.9% 1000 Ml Administered 09/04/21 00:45 Dose 1,000 mls @ ud .ROUTE .STK-MED ONE Ketorolac Tromethamine 30 mg 09/04/21 00:36 09/04/21 00:53 Ketorolac Tromethamine 30 Mg/Ml Inj IV 09/04/21 00:37 30 mg STAT ONE Administration Ketorolac Tromethamine Confirm 09/04/21 00:44 Ketorolac Tromethamine 30 Mg/Ml Inj Administered 09/04/21 00:45 Dose 30 mg .ROUTE .STK-MED ONE Ondansetron HCl 4 mg 09/04/21 00:36 09/04/21 00:53 Ondansetron Hcl 4 Mg/2 Ml Vial IV 09/04/21 00:37 4 mg STAT ONE Administration Ondansetron HCl Confirm 09/04/21 00:44 Ondansetron Hcl 4 Mg/2 Ml Vial Administered 09/04/21 00:45 Dose 4 mg .ROUTE .STK-MED ONE Lab/Rad Data: Laboratory Result Diagrams 09/04/21 00:36 09/04/21 00:36 Laboratory Results 09/04/21 09/04/21 09/04/21 Range/Units 01:19 00:36 00:36 WBC 8.9 (4.0-10.5) x10^3/uL RBC 4.50 (4.1-5.6) x10^6/uL Hgb 13.3 (12.5-18.0) g/dL Hct 40.6 L (42-50) % MCV 90.2 (78-100) fL MCH 29.6 (26-32) pg MCHC 32.8 (32-36) g/dL RDW 14.4 H (11.5-14.0) % Plt Count 314 (150-450) x10^3/uL MPV 8.9 (7.5-11.0) fL Gran % 70.9 H (36.0-66.0) % Immature Gran % (Auto) 0.2 (0.00-0.4) % Nucleat RBC Rel Count 0.0 (0.00-0.1) % Eos # (Auto) 0.08 (0-0.5) x10^3/uL Immature Gran # (Auto) 0.02 (0.00-0.03) x10^3u/L Absolute Lymphs (auto) 1.66 (1.0-4.6) x10^3/uL Absolute Monos (auto) 0.77 (0.0-1.3) x10^3/uL Absolute Nucleated RBC 0.00 (0.00-0.01) x10^3u/L Lymphocytes % 18.6 L (24.0-44.0) % Monocytes % 8.6 (0.0-12.0) % Eosinophils % 0.9 (0.00-5.0) % Basophils % 0.8 (0.0-0.4) % Absolute Granulocytes 6.34 (1.4-6.9) x10^3/uL Basophils # 0.07 (0-0.4) x10^3/uL Sodium 137 (137-145) mmol/L Potassium 4.4 (3.5-5.1) mmol/L Chloride 106 (98-107) mmol/L Carbon Dioxide 22 (22-30) mmol/L Anion Gap 13.6 (5-15) MEQ/L BUN 20 (9-20) mg/dL Creatinine 1.30 H (0.66-1.25) mg/dL Estimated GFR > 60.0 ML/MIN Glucose 95 (74-106) mg/dL Calcium 10.2 (8.4-10.2) mg/dL Total Bilirubin 0.40 (0.2-1.3) mg/dL AST 21 (17-59) U/L ALT 17 (0-50) U/L Alkaline Phosphatase 88 (38-126) U/L Serum Total Protein 7.2 (6.3-8.2) g/dL Albumin 4.5 (3.5-5.0) g/dL Amylase 60 (30-110) U/L Lipase 65 (23-300) U/L Urinalys Dipstick Clnc MAIN LAB Urine Color YELLOW (YELLOW) Urine Appearance CLEAR (CLEAR) Urine pH 5.5 (5-6) Ur Specific [place] >=1.030 (1.005-1.025) POC Urine Protein Conf NEGATIVE (Negative) Urine Ketones NEGATIVE (NEGATIVE) Urine Nitrite NEGATIVE (NEGATIVE) Urine Bilirubin NEGATIVE (NEGATIVE) Urine Urobilinogen 0.2 (0-1) mg/dL Urine Leukocytes NEGATIVE (NEGATIVE) Urine WBC (Auto) 0-2 (0-5) /HPF Urine RBC (Auto) 0-2 (0-2) /HPF U Hyaline Cast (Auto) 11-25 (0-2) /LPF Urine Bacteria (Auto) RARE (NEGATIVE) /HPF Urine RBC NEGATIVE (0-5) Tru/ul Urine Mucus (Auto) SLIGHT (NEGATIVE) /HPF Ur Culture Indicated? NO Urine Glucose NEGATIVE (NEGATIVE) mg/dL - Progress Progress: improved, pain not gone completely, re-examined Progress Note: 09/04/21 02:57 CAT scan of the abdomen pelvis without contrast shows no evidence of any left- sided renal stone, ureteral stone, hydronephrosis or ureteral dilatation. There is a punctate renal stone in the right kidney. Counseled pt/family regarding: lab results, diagnosis, need for follow-up, rad results - Departure Departure Disposition: Home Clinical Impression: Left flank pain Condition: Stable Critical Care Time: No Referrals: JESUS LARA NP [Primary Care Provider] - Follow up/PCP as directed Additional Instructions: Drink plenty of fluids. Use Tylenol and ibuprofen for pain control. Follow-up with your primary care physician for further evaluation and management.
[2021-09-04] MEDS ORDERED: TORAdol 30 mg Injection IV ONE (00:36)
[2021-09-04] MEDS ORDERED: Sodium Chloride 0.9% 1000 ML 1,000 ML IV STA (00:36)
[2021-09-04] MEDS ORDERED: Zofran 4 MG/2 ML VIAL IV ONE (00:36)
[2021-09-04] MEDS ORDERED: Zofran 4 MG/2 ML VIAL ONE (00:44)
[2021-09-04] MEDS ORDERED: TORAdol 30 mg Injection ONE (00:44)
[2021-09-04] MEDS ORDERED: Sodium Chloride 0.9% 1000 ML 1,000 ML ONE (00:44)
[2021-09-04 01:11] LABS: Absolute Neutrophil Ct (ANC) 6.34 x10^3/uL (1.4-6.9); Basophil (Absolute #) 0.07 x10^3/uL (0-0.4); Eosinophil % 0.9 % (0.00-5.0); Eosinophil (Absolute #) 0.08 x10^3/uL (0-0.5); Hematocrit 40.6 % (42-50); Hemoglobin 13.3 g/dL (12.5-18.0); Lymphocyte (Absolute #) 1.66 x10^3/uL (1.0-4.6); Lymphocytes % 18.6 % (24.0-44.0); Mean Cell Volume 90.2 fL (78-100); Mean Corpuscular Hemoglobin 29.6 pg (26-32); Mean Corpuscular Hgb Concent. 32.8 g/dL (32-36); Mean Platelet Volume 8.9 fL (7.5-11.0); Monocyte (Absolute #) 0.77 x10^3/uL (0.0-1.3); Monocytes % 8.6 % (0.0-12.0); Neutrophil % 70.9 % (36.0-66.0); Platelet Count 314 x10^3/uL (150-450); Red Cell Distribution Width 14.4 % (11.5-14.0); White Blood Count 8.9 x10^3/uL (4.0-10.5)
[2021-09-04 01:20] LABS: Appearance CLEAR (CLEAR); Bacteria RARE /HPF (NEGATIVE); Bilirubin NEGATIVE (NEGATIVE); Glucose NEGATIVE (NEGATIVE); Ketones NEGATIVE (NEGATIVE); Mucus SLIGHT /HPF (NEGATIVE); Ph 5.5 (5-6); RBC 0-2 /HPF (0-2); RBC NEGATIVE Ery/ul (0-5); Specific Gravity >=1.030 (1.005-1.025); WBC 0-2 /HPF (0-5)
[2021-09-04 01:21] LABS: Nitrite NEGATIVE (NEGATIVE); Protein,Urine Dip NEGATIVE (Negative); Urine Cultured Indicated? NO; Urobilinogen 0.2 mg/dL (0-1)
[2021-09-04 01:24] LABS: ALBUMIN 4.5 g/dL (3.5-5.0); ALKALINE PHOSPHATASE 88 U/L (38-126); AMYLASE 60 U/L (30-110); ANION GAP 13.6 MEQ/L (5-15); BLOOD UREA NITROGEN 20 mg/dL (9-20); CHLORIDE 106 mmol/L (98-107); Calcium 10.2 mg/dL (8.4-10.2); Carbon Dioxide 22 mmol/L (22-30); EST GLOMERULAR FILTRATION RATE > 60.0 ML/MIN; Glucose 95 mg/dL (74-106); LIPASE 65 U/L (23-300); Potassium 4.4 mmol/L (3.5-5.1); SGOT/AST 21 U/L (17-59); SGPT/ALT 17 U/L (0-50); SODIUM 137 mmol/L (137-145); Total Protein 7.2 g/dL (6.3-8.2)
[2021-09-04 01:30] LABS: Dipstick done @ ? MAIN LAB
[2021-09-04 02:53] VITALS: BP 128/76; PULSE 53; O2SAT 100
--- NOTE | 2021-09-04 09:24 | XRAY ---
Indication: Left abdomen and flank pain. Nausea and vomiting. History stones. Multiple contiguous axial images obtained through the abdomen and pelvis without contrast using renal stone protocol. Comparison: July 18, 2008 Lung bases clear. Heart not enlarged. Right kidney demonstrates new 2 mm nonobstructing calculus. No hydronephrosis/hydroureter or evidence for obstructive uropathy. There is now 2.0 x 1.1 cm left adrenal adenoma. Again previous cholecystectomy. No free fluid/air. Noncontrasted stomach and bowel loops appear nonobstructed with normal air-filled appendix. Remaining liver, pancreas, spleen, adrenal glands, kidneys, ureters, and bladder appear unremarkable for noncontrast exam. Minimal aortoiliac calcifications without AAA. Osseous structures intact with worsening moderate L4-L5 degenerative disc disease. No ventral or inguinal hernias. Impression: 1. New nonobstructed right renal micro-calculus and left adrenal adenoma. 2. Worsening L4-L5 degenerative disc disease. 3. Remaining CT abdomen/pelvis without contrast exam is negative. Comment: Preliminary interpretation made by [facility]. No critical discrepancy.
== END 2021-09-04 03:09 | disposition home or self-care (01) ==
LOC: ED 23:30
DX: R10.32 Left lower quadrant pain (principal); R10.12 Left upper quadrant pain; R11.0 Nausea; Z72.0 Tobacco use; Z87.442 Personal history of urinary calculi
CPT/HCPCS: 36000; 36415; 74176; 80053; 81015; 82150; 83690; 85025; 96374; 96375; 99284; J1885; J2405

== ENCOUNTER 2022-12-18 22:27 | Emergency (ER) | payer BC, OTHER ==
[2022-12-18 22:43] VITALS: RESP 22; TEMP 97.3
[2022-12-18] MEDS ORDERED: MORPHINE SULFATE 4 MG INJ IV ONE (22:46)
[2022-12-18] MEDS ORDERED: TORAdol 30 mg Injection IV ONE (22:46)
[2022-12-18] MEDS ORDERED: Zofran 4 MG/2 ML VIAL IV ONE (22:46)
[2022-12-18] MEDS ORDERED: Sodium Chloride 0.9% 1000 ML 1,000 ML IV STA (22:46)
[2022-12-18] MEDS ORDERED: Flomax 0.4 MG PO STA (22:49)
[2022-12-18] MEDS ORDERED: Flomax 0.4 MG ONE (22:52)
[2022-12-18] MEDS ORDERED: Zofran 4 MG/2 ML VIAL ONE (22:52)
[2022-12-18] MEDS ORDERED: Sodium Chloride 0.9% 1000 ML 1,000 ML ONE (22:52)
[2022-12-18] MEDS ORDERED: TORAdol 30 mg Injection ONE (22:52)
[2022-12-18] MEDS ORDERED: MORPHINE SULFATE 4 MG INJ ONE (22:52)
--- NOTE | 2022-12-18 22:53 | ERPHSYRPT ---
- History of Present Illness Time Seen by Provider: 12/18/22 22:41 Historian: patient Exam Limitations: no limitations Patient Subjective Stated Complaint: pt states he was at work when this sharp pain started in his back. pt states it fells like a kidney stone. pt states the last time he had a kidney stone it was surgical removed Triage Nursing Assessment: pt ambulated into the er holding his rt flank area; axo x4; c/o rt flank pain; pt is restless, irritable; abd is soft, round, non- tender; last BM 12/18/22; c/o nausea; pt denies V/D; tenderness present to rt flank region; skin PDW; no respiratory distress present; hypertensive Physician History: 42 years old male with history of kidney stones presented in the ER with chief complaint of sudden onset right flank pain almost an hour ago, moderate to severe sharp shooting, nonradiating with associated nausea but no vomiting. Reports difficulty urination. No hematuria reported. Reports having similar symptoms in the past with kidney stones. No fever or chills reported. Allergies/Adverse Reactions: No Known Drug Allergies Allergy (Verified 12/18/22 22:33) Home Medications: Alprazolam [Xanax] 0.5 mg PO TID 08/05/21 [History] Doxepin HCl 20 mg PO HS 08/05/21 [History] Hx Tetanus, Diphtheria Vaccination/Date Given: Yes Hx Influenza Vaccination/Date Given: No Hx Pneumococcal Vaccination/Date Given: No Travel Risk - International Travel Have you traveled outside of the country in past 3 weeks: No - Coronavirus Screening Are you exhibiting any of the following symptoms?: No Close contact with a COVID-19 positive Pt in past 14-21 Days: No - Vaccine Status Have you recieved a Covid-19 vaccination: No - Review of Systems Constitutional: No Symptoms Eyes: No Symptoms Ears, Nose, & Throat: No Symptoms Respiratory: No Symptoms Cardiac: No Symptoms Abdominal/Gastrointestinal: Abdominal Pain, Nausea Genitourinary Symptoms: No Symptoms Musculoskeletal: No Symptoms Neurological: No Symptoms Endocrine: No Symptoms Hematologic/Lymphatic: No Symptoms - Past Medical History Pertinent Past Medical History: Yes Neurological History: Other ENT History: No Pertinent History Cardiac History: No Pertinent History Respiratory History: No Pertinent History Endocrine Medical History: No Pertinent History Musculoskeletal History: Degenerative Disk Disease GI Medical History: GERD, Other History: No Pertinent History Psycho-Social History: Anxiety Male Reproductive Disorders: No Pertinent History Other Medical History: SX HX - CHOLECYSTECTOMY - Past Surgical History Past Surgical History: Yes Neuro Surgical History: No Pertinent History Cardiac: No Pertinent History Respiratory: No Pertinent History Gastrointestinal: Cholecystectomy Genitourinary: Other Other Surgical History: kidney stone removal - Social History Smoking Status: Current every day smoker How long have you smoked: 27 yrs Exposure to second hand smoke: Yes Drug Use: none Patient Lives Alone: No Significant Family History: no pertinent family hx - Nursing Vital Signs Nursing Vital Signs: Initial Vital Signs Temperature 97.3 F 12/18/22 22:31 Pulse Rate 85 12/18/22 22:31 Respiratory Rate 22 12/18/22 22:31 Blood Pressure 144/98 12/18/22 22:31 O2 Sat by Pulse Oximetry 100 12/18/22 22:31 Pain Scale Pain Intensity 5 - Physical Exam General Appearance: no apparent distress, alert Eye Exam: PERRL/EOMI Ears, Nose, Throat Exam: normal ENT inspection Neck Exam: normal inspection, non-tender, supple, full range of motion Respiratory Exam: normal breath sounds, lungs clear Cardiovascular Exam: regular rate/rhythm, normal heart sounds Gastrointestinal/Abdomen Exam: soft, normal bowel sounds, tenderness (Left flank with positive CVA tenderness) Back Exam: normal inspection, normal range of motion, CVA tenderness (Left) Extremity Exam: normal inspection, normal range of motion Neurologic Exam: alert, oriented x 3, cooperative, gambling supervisor II-XII nml as tested Skin Exam: normal color SpO2 Interpretation: normal SpO2: 100 O2 Delivery: Room Air Ordered Tests: Active Orders 24 hr Category Date Time Status IV Insertion STAT Care 12/18/22 22:46 Active NPO (ED) STAT Care 12/18/22 22:46 Active ABDOMEN AND PELVIS W/0 CONTRAS [CT] Stat Exams 12/18/22 23:10 Completed CBC W DIFF Stat Lab 12/18/22 23:13 Completed CMP Stat Lab 12/18/22 23:13 Completed LIPASE Stat Lab 12/18/22 23:13 Completed UA W/RFX UR CULTURE Stat Lab 12/18/22 22:56 Completed Medication Summary Discontinued Medications Generic Name Dose Route Start Last Admin Trade Name Freq PRN Reason Stop Dose Admin Hydrocodone Bitart/Acetaminophen 2 tab 12/19/22 00:20 Hydrocodone/Apap 5/325 1 Tab Tablet PO 12/19/22 00:21 SENT HOME W/ PATIENT ONE Hydromorphone HCl 1 mg 12/18/22 23:40 12/18/22 23:43 Hydromorphone 1 Mg/1ml Inj IV 12/18/22 23:41 1 mg STAT ONE Administration Hydromorphone HCl Confirm 12/18/22 23:42 Hydromorphone 1 Mg/1ml Inj Administered 12/18/22 23:43 Dose 1 mg .ROUTE .STK-MED ONE Sodium Chloride 1,000 mls @ 999 mls/hr 12/18/22 22:46 12/18/22 23:56 Sodium Chloride 0.9% 1000 Ml IV 12/18/22 23:46 Infused .Q1H1M STA Infusion Sodium Chloride Confirm 12/18/22 22:52 Sodium Chloride 0.9% 1000 Ml Administered 12/18/22 22:53 Dose 1,000 mls @ ud .ROUTE .STK-MED ONE Ketorolac Tromethamine 30 mg 12/18/22 22:46 12/18/22 22:59 Ketorolac Tromethamine 30 Mg/Ml Inj IV 12/18/22 22:47 30 mg STAT ONE Administration Ketorolac Tromethamine Confirm 12/18/22 22:52 Ketorolac Tromethamine 30 Mg/Ml Inj Administered 12/18/22 22:53 Dose 30 mg .ROUTE .STK-MED ONE Morphine Sulfate 4 mg 12/18/22 22:46 12/18/22 23:01 Morphine Sulfate 4 Mg/Ml Injection IV 12/18/22 22:47 4 mg STAT ONE Administration Morphine Sulfate Confirm 12/18/22 22:52 Morphine Sulfate 4 Mg/Ml Injection Administered 12/18/22 22:53 Dose 4 mg .ROUTE .STK-MED ONE Ondansetron HCl 4 mg 12/18/22 22:46 12/18/22 22:57 Ondansetron Hcl 4 Mg/2 Ml Vial IV 12/18/22 22:47 4 mg STAT ONE Administration Ondansetron HCl Confirm 12/18/22 22:52 Ondansetron Hcl 4 Mg/2 Ml Vial Administered 12/18/22 22:53 Dose 4 mg .ROUTE .STK-MED ONE Tamsulosin HCl 0.4 mg 12/18/22 22:49 12/18/22 22:54 Tamsulosin Hcl 0.4 Mg Cap PO 12/18/22 22:50 0.4 mg ONCE STA Administration Tamsulosin HCl Confirm 12/18/22 22:52 Tamsulosin Hcl 0.4 Mg Cap Administered 12/18/22 22:53 Dose 0.4 mg .ROUTE .STK-MED ONE Lab/Rad Data: Laboratory Result Diagrams 12/18/22 23:13 12/18/22 23:13 Laboratory Results 12/18/22 12/18/22 12/18/22 Range/Units 23:13 23:13 22:56 WBC 9.6 (4.0-10.5) x10^3/uL RBC 4.80 (4.1-5.6) x10^6/uL Hgb 14.1 (12.5-18.0) g/dL Hct 42.9 (42-50) % MCV 89.4 (78-100) fL MCH 29.4 (26-32) pg MCHC 32.9 (32-36) g/dL RDW 13.2 (11.5-14.0) % Plt Count 344 (150-450) x10^3/uL MPV 9.3 (7.5-11.0) fL Gran % 43.0 (36.0-66.0) % Immature Gran % (Auto) 0.5 H (0.00-0.4) % Nucleat RBC Rel Count 0.0 (0.00-0.1) % Eos # (Auto) 0.47 (0-0.5) x10^3/uL Immature Gran # (Auto) 0.05 H (0.00-0.03) x10^3u/L Absolute Lymphs (auto) 3.70 (1.0-4.6) x10^3/uL Absolute Monos (auto) 1.13 (0.0-1.3) x10^3/uL Absolute Nucleated RBC 0.00 (0.00-0.01) x10^3u/L Lymphocytes % 38.4 (24.0-44.0) % Monocytes % 11.7 (0.0-12.0) % Eosinophils % 4.9 (0.00-5.0) % Basophils % 1.5 (0.0-0.4) % Absolute Granulocytes 4.14 (1.4-6.9) x10^3/uL Basophils # 0.14 (0-0.4) x10^3/uL Sodium 140 (137-145) mmol/L Potassium 3.8 (3.5-5.1) mmol/L Chloride 108 H (98-107) mmol/L Carbon Dioxide 20 L (22-30) mmol/L Anion Gap 15.2 H (5-15) MEQ/L BUN 13 (9-20) mg/dL Creatinine 1.19 (0.66-1.25) mg/dL Estimated GFR > 60.0 ML/MIN Glucose 91 (74-106) mg/dL Calcium 8.9 (8.4-10.2) mg/dL Total Bilirubin 0.30 (0.2-1.3) mg/dL AST 27 (17-59) U/L ALT 30 (0-50) U/L Alkaline Phosphatase 91 (38-126) U/L Serum Total Protein 7.1 (6.3-8.2) g/dL Albumin 4.3 (3.5-5.0) g/dL Lipase 72 (23-300) U/L Urine Color Yellow (Yellow) Urine Appearance Clear (Clear) Urine pH 5.0 (4.6-8.0) Ur Specific [place] 1.025 (1.005-1.030) Urine Protein Negative (Negative) Urine Glucose (UA) Negative (Negative) mg/dL Urine Ketones Negative (Negative) Urine Blood Negative (Negative) Urine Nitrite Negative (Negative) Urine Bilirubin Negative (Negative) Urine Urobilinogen 0.2 (0.2) mg/dL Ur Leukocyte Esterase Negative (Negative) U Hyaline Cast (Auto) 3-5 A (0-2) /LPF Urine Microscopic RBC 0-2 (0-5) /HPF Urine Microscopic WBC 0-2 (0-5) /HPF Ur Epithelial Cells None Seen (None Seen) /HPF Urine Bacteria None Seen (None Seen) /HPF Urine Culture Reflexed NO (NO) - Progress Progress: improved, re-examined Progress Note: 12/18/22 23:38 42 years old male with history of kidney stones presented in the ER with chief complaint of sudden onset right flank pain almost an hour ago, moderate to severe sharp shooting, nonradiating with associated nausea but no vomiting. Reports difficulty urination. No hematuria reported. Reports having similar symptoms in the past with kidney stones. No fever or chills reported. Tenderness left flank and positive CVA tenderness. No right lower quadrant tenderness. Lungs bilateral clear to auscultation. Given fluids and symptomatic treatment 12/19/22 00:22 Patient is feeling much better on reevaluation. Has normal white count, fairly unremarkable chemistries. No UTI. CT abdomen pelvis showed 3 mm distal ureteral stone at UVJ area with mild hydroureter nephrosis. CT also showed bilateral adrenal adenomas. Discussed with patient results of work-up including CT findings and option of transfer to [facility] where urology services are available. Patient likes to go home and I think it is reasonable as 3 mm stone will hopefully pass on its own. Patient is advised to follow-up with outpatient urology as he has seen [facility] urology in the past. I would give him pain medications along with Flomax and prophylactic antibiotics as there is a questionable element of partial obstruction. Discussed signs symptoms of worsening needing return to ER which she seems understanding. Stable for discharge. Counseled pt/family regarding: lab results, diagnosis, need for follow-up, rad results Medical Desision Making - Diagnostic Testing Radiological Interpretation: Reviewed by me, Teleradiologist Report - Risk of complications The pt has a mod risk of morbidity or mortality based on: Need for prescription drug management - Departure Departure Disposition: Home Clinical Impression: Ureterolithiasis Condition: Stable Critical Care Time: No Referrals: JESUS LARA NP [Primary Care Provider] - Follow up with PCP 1 day RACHEL ESPARZA DO [NON-STAFF PHY W/O PRIVILEGES] - Follow up/PCP as directed (Call in morning for appointment for evaluation) Instructions: Kidney Stones (DC) Additional Instructions: Take pain medications as needed. Drink plenty of fluids. Follow-up with urology for reevaluation in 1 to 2 days. Return to ER for intractable pain/difficulty urination/intractable vomiting/fever chills etc. Prescriptions: Hydrocodone/Acetaminophen [Hydrocodone-Acetamin 7.5-325] 1 each PO Q6HPRN PRN 3 Days #10 tablet MDD 4 PRN Reason: Pain Ciprofloxacin [Cipro 500 MG] 500 mg PO BID #14 tablet Tamsulosin HCl 0.4 mg [Flomax 0.4 MG] 0.4 mg PO DAILY #30 cap
[2022-12-18 23:16] LABS: Absolute Neutrophil Ct (ANC) 4.14 x10^3/uL (1.4-6.9); BASOPHIL % 1.5 % (0.0-0.4); Basophil (Absolute #) 0.14 x10^3/uL (0-0.4); Eosinophil % 4.9 % (0.00-5.0); Eosinophil (Absolute #) 0.47 x10^3/uL (0-0.5); Hematocrit 42.9 % (42-50); Hemoglobin 14.1 g/dL (12.5-18.0); IMMATURE GRAN # 0.05 x10^3u/L (0.00-0.03); IMMATURE GRAN % 0.5 % (0.00-0.4); Lymphocytes % 38.4 % (24.0-44.0); Mean Cell Volume 89.4 fL (78-100); Mean Corpuscular Hemoglobin 29.4 pg (26-32); Mean Corpuscular Hgb Concent. 32.9 g/dL (32-36); Mean Platelet Volume 9.3 fL (7.5-11.0); Monocyte (Absolute #) 1.13 x10^3/uL (0.0-1.3); Monocytes % 11.7 % (0.0-12.0); Platelet Count 344 x10^3/uL (150-450); Red Cell Distribution Width 13.2 % (11.5-14.0); White Blood Count 9.6 x10^3/uL (4.0-10.5)
[2022-12-18 23:23] LABS: Appearance Clear (Clear); Bacteria None Seen /HPF (None Seen); Bilirubin Negative (Negative); Blood Negative (Negative); Epithelial Cells None Seen /HPF (None Seen); Glucose, Urine Negative (Negative); Ketones Negative (Negative); Leukocyte Esterase Negative (Negative); Nitrite Negative (Negative); Protein,Urine Dip Negative (Negative); RBC 0-2 /HPF (0-5); Specific Gravity 1.025 (1.005-1.030); Urobilinogen 0.2 mg/dL (0.2); WBC 0-2 /HPF (0-5)
[2022-12-18 23:24] LABS: ADD URINE CULTURE? NO (NO)
[2022-12-18 23:28] LABS: ALBUMIN 4.3 g/dL (3.5-5.0); ALKALINE PHOSPHATASE 91 U/L (38-126); ANION GAP 15.2 MEQ/L (5-15); BLOOD UREA NITROGEN 13 mg/dL (9-20); CHLORIDE 108 mmol/L (98-107); Calcium 8.9 mg/dL (8.4-10.2); Carbon Dioxide 20 mmol/L (22-30); Creatinine 1 1.19 mg/dL (0.66-1.25); EST GLOMERULAR FILTRATION RATE > 60.0 ML/MIN; Glucose 91 mg/dL (74-106); LIPASE 72 U/L (23-300); Potassium 3.8 mmol/L (3.5-5.1); SGOT/AST 27 U/L (17-59); SGPT/ALT 30 U/L (0-50); SODIUM 140 mmol/L (137-145); Total Protein 7.1 g/dL (6.3-8.2)
[2022-12-18] MEDS ORDERED: Hydromorphone 1 mg/ml Injection IV ONE (23:40)
[2022-12-18] MEDS ORDERED: Hydromorphone 1 mg/ml Injection ONE (23:42)
--- NOTE | 2022-12-19 00:09 | XRAY ---
CLINICAL HISTORY:right flankpain /stone? COMPARISON:09-04-2021 TECHNIQUE:Multiple axial sections of the abdomen and pelvis were acquired without intravenous contrast administration. Sagittal and coronal reformatted images were obtained. CTDI volume: 18.47 mGy. Total DLP: 1070.4 mGy/cm. FINDINGS: A 1.0 cm calcified granuloma is noted in the right lower lobe. A 2 mm subpleural calcified focus/granuloma and chronic pleuropulmonary atelectatic changes are seen in the right middle lobe. Normal-sized liver showing increased parenchymal attenuation likely reflecting fatty changes. A 4 mm low-attenuation area is seen in the left lobe of the liver and a 3 mm similar hypodensity is noted in the 4 of the liver. No intrahepatic duct dilatation is noted. The gallbladder is surgically absent. The common bile duct is within normal limits. The stomach and distal esophagus appear unremarkable. The pancreas and spleen are normal. Two fat-containing nodules measuring 1.0 x 0.8 cm and 1.1 x 0.8 cm are seen in the left adrenal gland. A fat-containing 0.6 x 0.6 cm nodule is noted in the right adrenal gland. Focal calcification of the lateral level of the right adrenal gland is also noted. Both kidneys are in size, location, and axis. A nonobstructing 3 mm calculus is seen at the upper pole of the right kidney. Mild hydronephrosis and hydroureter is noted on the right due to a 3 mm presumably obstructive calculus seen in the distal right ureter just proximal to the right ureterovesical junction. Associated mild distal periureteric fat stranding are seen. No hydronephrosis or calculus is seen on the left. The normal course of the left ureter. The urinary bladder is suboptimally distended. No acute bowel obstruction or ileus. Mild scattered colonic stool volume. The appendix is normal. Small bowel loops are within normal limits. No evidence of enteric or retroperitoneal lymphadenopathy. No free fluid or free intraperitoneal air is noted. Small fat-containing inguinal hernias. Moderate disc space narrowing with grade 1 retrolisthesis is seen at L4-L5. IMPRESSION: 1. A 3 mm obstructive calculus is seen in the right distal ureter with resultant proximal mild right hydroureteronephrosis. 2. Nonobstructing 2 mm right renal calculus. 3. A few small scattered hepatic hypodense areas. Lack of contrast limits evaluation. 4. Bilateral fat-containing adrenal nodules, likely adenomas. [11:07 PM] Tonia Kunz [facility] ER was called at [phone] at 11:05 PM FINANCIAL SERVICES EDUCATION CONSULTANT, 12/18/2022 and the results were verbally communicated with Kartik Melissa. Electronically Signed by: Virla Murray MD. (12/18/2022 23:08:06 FINANCIAL SERVICES EDUCATION CONSULTANT)
[2022-12-19 00:15] VITALS: BP 144/91; PULSE 77; O2SAT 100
[2022-12-19] MEDS ORDERED: NORCO 5/325 MG PO ONE (00:20)
[2022-12-19] MEDS ORDERED: NORCO 5/325 MG ONE (00:23)
[2022-12-19] MEDS ORDERED: Cipro 500 MG PO STA (00:25)
[2022-12-19] MEDS ORDERED: Cipro 500 MG ONE (00:29)
== END 2022-12-19 00:44 | disposition home or self-care (01) ==
LOC: ED 22:27
DX: N13.2 Hydronephrosis with renal and ureteral calculous obstruction (principal); R10.9 Unspecified abdominal pain; R11.0 Nausea; Z79.891 Long term (current) use of opiate analgesic; Z79.899 Other long term (current) drug therapy; Z28.310 Unvaccinated for COVID-19; Z87.442 Personal history of urinary calculi; Z72.0 Tobacco use
CPT/HCPCS: 36000; 36415; 74176; 80053; 81001; 83690; 85025; 96360; 96374; 96375; 99284; J1170; J1885; J2270; J2405; A9270-GY

== ENCOUNTER 2022-12-19 05:19 | Emergency (ER) | payer OTHER ==
[2022-12-19 05:33] VITALS: TEMP 97.1
[2022-12-19] MEDS ORDERED: Zofran 4 MG/2 ML VIAL IV ONE (05:39)
[2022-12-19] MEDS ORDERED: Hydromorphone 1 mg/ml Injection IV ONE (05:39)
[2022-12-19] MEDS ORDERED: Hydromorphone 1 mg/ml Injection ONE (05:39)
[2022-12-19] MEDS ORDERED: Sodium Chloride 0.9% 1000 ML 1,000 ML ONE (05:39)
[2022-12-19] MEDS ORDERED: Zofran 4 MG/2 ML VIAL ONE (05:41)
[2022-12-19] MEDS ORDERED: Sodium Chloride 0.9% 1000 ML 1,000 ML IV SCH (05:45)
--- NOTE | 2022-12-19 06:01 | ERPHSYRPT ---
- History of Present Illness Time Seen by Provider: 12/19/22 05:39 Historian: patient Exam Limitations: no limitations Patient Subjective Stated Complaint: pt states his rt flank pain returned around 3 am and pain med has not helped. Triage Nursing Assessment: pt alert and oriented, answers questions approp. pt ambulates into room with steady gait noted. respirations nonlabored. skin warm and dry. abd soft and nontender to light palpation. bowel sounds present. pt reports pain in rt lower back and rt groin. rates 8/10 and describes as cramping. Physician History: 42 years old male with history of kidney stones who was evaluated earlier in this ER with a 3 mm obstructing stone, given pain medications presented back with excruciating pain right flank/right lower quadrant area despite taking pain medications given to him for home. Reports nausea with no vomiting. Also reports difficulty urination without hematuria. Allergies/Adverse Reactions: No Known Drug Allergies Allergy (Verified 12/19/22 05:33) Home Medications: Alprazolam [Xanax] 0.5 mg PO TID 08/05/21 [History] Doxepin HCl 20 mg PO HS 08/05/21 [History] Hx Tetanus, Diphtheria Vaccination/Date Given: Yes Hx Influenza Vaccination/Date Given: No Hx Pneumococcal Vaccination/Date Given: No Immunizations Up to Date: Yes Travel Risk - International Travel Have you traveled outside of the country in past 3 weeks: No - Coronavirus Screening Are you exhibiting any of the following symptoms?: No Close contact with a COVID-19 positive Pt in past 14-21 Days: No - Vaccine Status Have you recieved a Covid-19 vaccination: No - Review of Systems Constitutional: No Symptoms Ears, Nose, & Throat: No Symptoms Respiratory: No Symptoms Cardiac: No Symptoms Abdominal/Gastrointestinal: Abdominal Pain, Nausea Genitourinary Symptoms: Hesitancy Musculoskeletal: No Symptoms Neurological: No Symptoms Endocrine: No Symptoms Hematologic/Lymphatic: No Symptoms - Past Medical History Pertinent Past Medical History: Yes Neurological History: Other ENT History: No Pertinent History Cardiac History: No Pertinent History Respiratory History: No Pertinent History Endocrine Medical History: No Pertinent History Musculoskeletal History: Degenerative Disk Disease GI Medical History: GERD, Other History: Other Psycho-Social History: Anxiety Male Reproductive Disorders: No Pertinent History Other Medical History: SX HX - CHOLECYSTECTOMY. kidney stones - Past Surgical History Past Surgical History: Yes Neuro Surgical History: No Pertinent History Cardiac: No Pertinent History Respiratory: No Pertinent History Gastrointestinal: Cholecystectomy Genitourinary: Other Other Surgical History: kidney stone removal - Social History Smoking Status: Current every day smoker How long have you smoked: 27 yrs Exposure to second hand smoke: Yes Drug Use: none Patient Lives Alone: No Significant Family History: no pertinent family hx - Nursing Vital Signs Nursing Vital Signs: Initial Vital Signs Temperature 97.1 F 12/19/22 05:24 Pulse Rate 103 H 12/19/22 05:24 Respiratory Rate 20 12/19/22 05:24 Blood Pressure 129/93 12/19/22 05:24 O2 Sat by Pulse Oximetry 97 12/19/22 05:24 Pain Scale Pain Intensity 8 - Physical Exam General Appearance: no apparent distress, alert Eye Exam: PERRL/EOMI Ears, Nose, Throat Exam: normal ENT inspection Neck Exam: normal inspection, supple, full range of motion Respiratory Exam: normal breath sounds, lungs clear Cardiovascular Exam: regular rate/rhythm, normal heart sounds Gastrointestinal/Abdomen Exam: soft, normal bowel sounds, tenderness (Right lower quadrant/right flank with guarding but no rebound tenderness) Back Exam: normal inspection Extremity Exam: normal inspection, normal range of motion Neurologic Exam: alert, oriented x 3, cooperative Skin Exam: normal color SpO2 Interpretation: normal SpO2: 97 O2 Delivery: Room Air Ordered Tests: Medication Summary Generic Name Dose Route Start Last Admin Trade Name Freq PRN Reason Stop Dose Admin Sodium Chloride 1,000 mls @ 125 mls/hr 12/19/22 05:45 12/19/22 05:42 Sodium Chloride 0.9% 1000 Ml IV 01/18/23 05:44 125 mls/hr .Q8H TOAN Administration Discontinued Medications Generic Name Dose Route Start Last Admin Trade Name Freq PRN Reason Stop Dose Admin Hydromorphone HCl 0.5 mg 12/19/22 05:39 12/19/22 05:42 Hydromorphone 1 Mg/1ml Inj IV 12/19/22 05:40 0.5 mg STAT ONE Administration Hydromorphone HCl Confirm 12/19/22 05:39 Hydromorphone 1 Mg/1ml Inj Administered 12/19/22 05:40 Dose 1 mg .ROUTE .STK-MED ONE Ondansetron HCl 4 mg 12/19/22 05:39 12/19/22 05:42 Ondansetron Hcl 4 Mg/2 Ml Vial IV 12/19/22 05:40 4 mg STAT ONE Administration Ondansetron HCl Confirm 12/19/22 05:41 Ondansetron Hcl 4 Mg/2 Ml Vial Administered 12/19/22 05:42 Dose 4 mg .ROUTE .STK-MED ONE - Progress Progress: improved, pain not gone completely Progress Note: 12/19/22 05:59 42-year-old with history of kidney stones who was evaluated in the ER earlier, was discharged home on pain medication and outpatient urology follow-up presents back with worsening pain right flank/right lower quadrant with associated nausea and difficulty urination. Patient has marked tenderness in right flank/right lower quadrant. Positive CVA tenderness on the right side. Is given symptomatic treatment for pain along with fluids. I have discussed with Dr. Armendariz at [facility] emergency room, reviewed history, work-up and agreed with transfer. Counseled pt/family regarding: diagnosis Medical Desision Making - Discussion of managment Care discussed with:: on-call "doc" (Dr. Armendariz at [facility]) Reviewed:: Test results Agreed on:: Treatment plan Will see patient: in ED - Risk of complications The pt has a high risk of morbidity or mortality based on: Decision regarding hospitilization or escalation of hosp level of care - Departure Departure Disposition: Transfer Clinical Impression: Obstructive uropathy Condition: Stable Critical Care Time: No Referrals: JESUS LARA NP [Primary Care Provider] - Follow up/PCP as directed
[2022-12-19 06:36] VITALS: BP 128/80; PULSE 99; RESP 16; O2SAT 98
== END 2022-12-19 06:40 | disposition short-term general hospital (02) ==
LOC: ED 05:19
DX: N13.9 Obstructive and reflux uropathy, unspecified (principal); R10.9 Unspecified abdominal pain; R10.31 Right lower quadrant pain; R11.0 Nausea; Z79.899 Other long term (current) drug therapy; Z28.310 Unvaccinated for COVID-19; Z72.0 Tobacco use
CPT/HCPCS: 96374; 96375; 99284; J1170; J2405